=== PATIENT | male | born 1980 | race Caucasian/White ===

== ENCOUNTER 2018-06-15 14:36 | Emergency (ER) | payer OTHER ==
[~2018-06-15] VITALS: Ht 180.3 cm; Wt 81.7 kg
[~2018-06-15 14:36] MED LIST: ALPRAZOLAM OR; CELEXA 20 MG TA20 M1 PO; CELEXA40 MG PO; NAPROSYN500 MG PO; NORCO 5-325 TA1 EACH PO; PENICILLIN V P500 MG PO; XANAX 0.5 MG0.5 MG PO; XANAX1 MG PO
[2018-06-15 14:44] VITALS: BP 145/72
[2018-06-15] MEDS ORDERED: CELEXA40 MG PO (14:58)
[2018-06-15] MEDS ORDERED: ATIVAN1 MG PO (14:58)
== END 2018-06-15 15:11 | disposition home or self-care (01) ==
LOC: M.ERS 14:36
DX: F41.9 Anxiety disorder, unspecified (principal); Z76.0 Encounter for issue of repeat prescription; F32.9 Major depressive disorder, single episode, unspecified; F17.210 Nicotine dependence, cigarettes, uncomplicated; Z88.5 Allergy status to narcotic agent

== ENCOUNTER 2018-08-02 11:51 | Emergency (ER) | payer OTHER ==
[~2018-08-02] VITALS: Ht 180.3 cm; Wt 79.4 kg
[~2018-08-02 11:51] MED LIST changes: +ATIVAN1 MG PO
[2018-08-02] MEDS ORDERED: BUSPAR30 MG PO (11:55)
[2018-08-02] MEDS ORDERED: VISTARIL 25 MG25 M1 PO (11:55)
[2018-08-02 12:08] LABS: ABSOLUTE BASOPHILS 0.1 thou/uL (0.0-0.2); ABSOLUTE EOSINOPHILS 0.2 thou/uL (0.0-0.7); ABSOLUTE LYMPHOCYTES 2.4 thou/uL (0.8-5.3); ABSOLUTE MONOCYTES 0.6 thou/uL (0.0-1.2); ABSOLUTE NEUTROPHILS 4.3 thou/uL (1.6-8.1); BASOPHILS 0.9 %; EOSINOPHILS 2.1 %; HEMATOCRIT 46.3 % (42.0-52.0); HEMOGLOBIN 16.1 gm/dL (14.0-18.0); LYMPHOCYTES 32.3 %; MCH 32.9 pg (26.0-34.0); MCHC 34.8 g/dL (28.0-37.0); MCV 94.6 fL (80.0-100.0); MONOCYTES 7.5 %; MPV 6.9 fl. (7.2-11.1); NUCLEATED RBCS 0 /100WBC; PLATELET COUNT* 260 thou/uL (150-400); POLYS 57.2 %; WBC 7.6 thou/uL (4.0-11.0)
[2018-08-02 12:18] LABS: ANION GAP 9 mmol/L (7-16); BUN 7 mg/dL (7-18); CALCIUM 8.9 mg/dL (8.5-10.1); CHLORIDE 102 mmol/L (98-107); CO2 25 mmol/L (21-32); CREATININE 1.1 mg/dL (0.6-1.3); GLUCOSE 104 mg/dL (70-99); POTASSIUM 3.7 mmol/L (3.5-5.1); SODIUM 136 mmol/L (136-145)
[2018-08-02 12:20] LABS: APTT 26.1 Seconds (25.0-31.3); PROTIME 9.8 Seconds (9.20-11.50)
[2018-08-02 12:37] LABS: ALBUMIN 4.3 g/dL (3.4-5.0); ALKALINE PHOSPHATASE 103 U/L (46-116); CK-MB MASS 0.8 ng/mL (<0.5-3.6); LIPASE 211 U/L (73-393); MAGNESIUM 2.2 mg/dL (1.8-2.4); NT-PRO BRAIN NAT PEPTIDE 34 pg/mL (<300); SGOT 35 U/L (15-37); SGPT 74 U/L (30-65); TOTAL BILIRUBIN 0.4 mg/dL (<0.1-1.0); TOTAL PROTEIN 8.1 g/dL (6.4-8.2); TROPONIN-I LEVEL <0.06 ng/mL (<0.06)
[2018-08-02 13:03] VITALS: BP 105/66
--- NOTE | 2018-08-02 14:55 | EKG ---
[place] [address] ELECTROCARDIOGRAM REPORT Name: VIRGINIA VILLAGOMEZ Room: [facility]#: [id number] Admission: 08/02/18 Attend Phys: Discharge: 08/02/18 Date of : 82 Report #: [id number] THIS REPORT FOR: //name// [facility] ED Test Date: 2018-08-02 Test Time: 11:55:46 Pat Name: VIRGINIA VILLAGOMEZ Department: Room: Gender: M Planning Feeder: REJI : 1980 Requested By: Jean Miranda Order Number: [id number] MD: Kendall Dinh Measurements Intervals [place] Rate: 99 P: 47 OK: 125 QRS: 72 QRSD: 91 T: 21 QT: 357 QTc: 459 Interpretive Statements Sinus rhythm RSR' in V1 or V2, probably normal variant Artifact in lead(s) II,aVF,V1,V2,V3,V4,V5,V6 No previous ECG available for comparison Electronically Signed On 08-02-2018 14:55:20 CDT by Kendall Dinh [email or web address] <ELECTRONICALLY SIGNED> By: Kendall Dinh MD, FACC 08/02/18 1455 1155 1155 Kendall Dinh MD, [facility] /EPI
== END 2018-08-02 13:03 | disposition home or self-care (01) ==
LOC: M.ERS 11:51
PROVIDERS: Family Medicine
DX: R07.9 Chest pain, unspecified (principal); R06.02 Shortness of breath; F41.9 Anxiety disorder, unspecified

== ENCOUNTER 2019-10-28 23:05 | Emergency (ER) | payer OTHER ==
[~2019-10-28] VITALS: Ht 180.3 cm; Wt 72.6 kg
[~2019-10-28 23:05] MED LIST changes: +BUSPAR30 MG PO; +VISTARIL 25 MG25 M1 PO
[2019-10-28 23:36] LABS: ABSOLUTE EOSINOPHILS 0.1 thou/uL (0.0-0.7); ABSOLUTE LYMPHOCYTES 1.9 thou/uL (0.8-5.3); ABSOLUTE MONOCYTES 0.2 thou/uL (0.0-1.2); ABSOLUTE NEUTROPHILS 2.5 thou/uL (1.6-8.1); HEMATOCRIT 42.6 % (42.0-52.0); HEMOGLOBIN 14.9 gm/dL (14.0-18.0); LYMPHOCYTES 40.5 %; MCH 31.6 pg (26.0-34.0); MCHC 34.9 g/dL (28.0-37.0); MCV 90.4 fL (80.0-100.0); MONOCYTES 3.6 %; NUCLEATED RBCS 0 /100WBC; PLATELET COUNT* 222 thou/uL (150-400); POLYS 52.9 %; RBC 4.71 mil/uL (4.50-6.00); RDW-CV 13.2 % (10.5-14.5); WBC 4.7 thou/uL (4.0-11.0)
[2019-10-29 00:01] LABS: CALCIUM 8.1 mg/dL (8.5-10.1); CREATININE 0.9 mg/dL (0.6-1.3)
[2019-10-29 00:12] LABS: ALBUMIN 3.8 g/dL (3.4-5.0); TOTAL BILIRUBIN 0.3 mg/dL (<0.1-1.0); TOTAL PROTEIN 7.5 g/dL (6.4-8.2)
[2019-10-29 01:51] VITALS: BP 115/70
[2019-10-29] MEDS ORDERED: PENICILLIN VK250 MG PO (02:26)
--- NOTE | 2019-10-29 17:10 | EKG ---
[place] [address] ELECTROCARDIOGRAM REPORT Name: HERNANDOVIRGINIA SOLIS Room: [facility]#: [id number] Admission: 10/28/19 Attend Phys: Discharge: 10/29/19 Date of : 82 Report #: [id number] THIS REPORT FOR: //name// [facility] ED Test Date: 2019-10-28 Test Time: 23:10:57 Pat Name: VIRGINIA VILLAGOMEZ Department: Room: Gender: M English Faculty Member: GUSTABO : 1980 Requested By: Maida Raines Order Number: [id number] MD: Hector Capellan Measurements Intervals [place] Rate: 91 P: 33 ME: 146 QRS: 64 QRSD: 94 T: 10 QT: 353 QTc: 435 Interpretive Statements Sinus rhythm Consider left ventricular hypertrophy Compared to ECG 08/02/2018 11:55:46 No significant changes Electronically Signed On 10-29-2019 17:09:31 ELECTRICAL SYSTEM SPECIALIST by Hector Capellan [email or web address] <ELECTRONICALLY SIGNED> By: Hector Capellan MD, [facility] 10/29/19 1709 2310 2310 Hector Capellan MD, FACC /EPI
== END 2019-10-29 01:51 | disposition home or self-care (01) ==
LOC: M.ERS 23:05
PROVIDERS: Emergency Medicine
DX: R07.89 Other chest pain (principal); K02.9 Dental caries, unspecified; F17.210 Nicotine dependence, cigarettes, uncomplicated; Z88.5 Allergy status to narcotic agent

== ENCOUNTER 2020-02-17 08:22 | Emergency (ER) | payer OTHER ==
[~2020-02-17] VITALS: Ht 180.3 cm; Wt 77.1 kg
[~2020-02-17 08:22] MED LIST changes: +PENICILLIN VK250 MG PO
[2020-02-17] MEDS ORDERED: XANAX1 MG PO ×2 (08:44→11:16)
[2020-02-17] MEDS ORDERED: CELEXA 20 MG TA20 MG PO (08:46)
[2020-02-17 08:54] LABS: ABSOLUTE BASOPHILS 0.1 thou/uL (0.0-0.2); ABSOLUTE EOSINOPHILS 0.2 thou/uL (0.0-0.7); ABSOLUTE LYMPHOCYTES 2.6 thou/uL (0.8-5.3); ABSOLUTE MONOCYTES 0.5 thou/uL (0.0-1.2); ABSOLUTE NEUTROPHILS 2.5 thou/uL (1.6-8.1); BASOPHILS 0.9 %; EOSINOPHILS 3.2 %; HEMATOCRIT 45.7 % (42.0-52.0); HEMOGLOBIN 16.4 gm/dL (14.0-18.0); LYMPHOCYTES 44.6 %; MCH 33.6 pg (26.0-34.0); MCHC 35.8 g/dL (28.0-37.0); MCV 93.6 fL (80.0-100.0); MONOCYTES 8.4 %; MPV 6.4 fl. (7.2-11.1); NUCLEATED RBCS 0 /100WBC; PLATELET COUNT* 285 thou/uL (150-400); POLYS 42.9 %; RBC 4.88 mil/uL (4.50-6.00); RDW-CV 15.5 % (10.5-14.5); WBC 5.9 thou/uL (4.0-11.0)
[2020-02-17 09:03] LABS: CALCIUM 8.3 mg/dL (8.5-10.1); POTASSIUM 4.2 mmol/L (3.5-5.1)
[2020-02-17 09:13] LABS: MAGNESIUM 2.2 mg/dL (1.8-2.4); TOTAL BILIRUBIN 0.5 mg/dL (<0.1-1.0)
[2020-02-17] MEDS ORDERED: HYDROXYZINE HCL25 M2 PO (11:25)
[2020-02-17 11:38] VITALS: BP 118/76
--- NOTE | 2020-02-18 10:35 | EKG ---
[place] [address] ELECTROCARDIOGRAM REPORT Name: HERNANDOVIRGINIA TERESITA GORDONALD Room: [facility]#: [id number] Admission: 02/17/20 Attend Phys: Discharge: 02/17/20 Date of : 82 Date of Service: 02/17/20825 Report #: [id number] THIS REPORT FOR: //name// [facility] ED Test Date: 2020-02-17 Test Time: 08:26:45 Pat Name: VIRGINIA VILLAGOMEZ Department: Room: Gender: Curriculum Director: [place] : 1980 Requested By: Cornell Orourke Order Number: [id number] MD: Gerry Maurer Measurements Intervals [place] Rate: 94 P: 39 MT: 141 QRS: 83 QRSD: 90 T: 66 QT: 352 QTc: 441 Interpretive Statements Sinus rhythm Borderline ST depression, lateral leads Compared to ECG 10/28/2019 23:10:57 ST (T wave) deviation now present Electronically Signed On 02-18-2020 10:33:29 CDT by Gerry Maurer [email or web address] <ELECTRONICALLY SIGNED> By: Gerry Maurer MD, [facility] 02/18/20 1033 0826 5 Gerry Maurer MD, [facility] /EPI
== END 2020-02-17 11:47 | disposition home or self-care (01) ==
LOC: M.ERS 08:22
PROVIDERS: Emergency Medicine Emergency Medical Services
DX: F41.9 Anxiety disorder, unspecified (principal); F17.210 Nicotine dependence, cigarettes, uncomplicated; Z88.5 Allergy status to narcotic agent

== ENCOUNTER 2021-07-16 00:50 | Emergency (ER) | payer OTHER ==
[~2021-07-16] VITALS: Ht 180.3 cm; Wt 86.2 kg
[~2021-07-16 00:50] MED LIST changes: +CELEXA 20 MG TA20 MG PO; +HYDROXYZINE HCL25 M2 PO
[2021-07-16 01:26] LABS: HEMATOCRIT 42.7 % (42.0-52.0); HEMOGLOBIN 14.6 gm/dL (14.0-18.0); MCH 33.2 pg (26.0-34.0); MCHC 34.3 g/dL (28.0-37.0); MCV 96.8 fL (80.0-100.0); MPV 6.9 fl. (7.2-11.1); RBC 4.41 mil/uL (4.50-6.00); RDW-CV 15.4 % (10.5-14.5)
[2021-07-16 01:30] LABS: CALCIUM 8.2 mg/dL (8.5-10.1); CREATININE 0.9 mg/dL (0.6-1.3); POTASSIUM 3.7 mmol/L (3.5-5.1)
[2021-07-16 01:35] LABS: ALBUMIN 4.2 g/dL (3.4-5.0); TOTAL BILIRUBIN 0.2 mg/dL (<0.1-1.0); TOTAL PROTEIN 7.8 g/dL (6.4-8.2)
[2021-07-16 01:46] LABS: ALCOHOL 251 mg/dL (<10)
[2021-07-16 01:49] LABS: ACETAMINOPHEN < 2 ug/mL (10-30)
[2021-07-16 05:58] LABS: URINE BILIRUBIN NEGATIVE (Negative); URINE BLOOD NEGATIVE (Negative); URINE CLARITY CLEAR; URINE COLOR YELLOW; URINE GLUCOSE-RANDOM NEGATIVE (Negative); URINE KETONES NEGATIVE (Negative); URINE LEUKOCYTES NEGATIVE (Negative); URINE NITRITE NEGATIVE (Negative); URINE PROTEIN NEGATIVE (Negative); URINE UROBILINOGEN 0.2 E.U./dl (0.2-1.0)
[2021-07-16 06:05] LABS: AMP/METHAMP Negative (Negative); BARBITURATES Negative (Negative); BENZODIAZEPINES POSITIVE (Negative); COCAINE Negative (Negative); METHADONE Negative (Negative); OPIATES Negative (Negative); PCP Negative (Negative); THC Negative (Negative)
[2021-07-16 10:46] VITALS: BP 115/63
== END 2021-07-16 10:47 | disposition home or self-care (01) ==
LOC: M.ERS 00:50
PROVIDERS: Personal Emergency Response Attendant
DX: F10.129 Alcohol abuse with intoxication, unspecified (principal); Z20.822 Contact with and (suspected) exposure to COVID-19; F32.9 Major depressive disorder, single episode, unspecified; F15.94 Other stimulant use, unspecified with stimulant-induced mood disorder; F41.9 Anxiety disorder, unspecified; F17.210 Nicotine dependence, cigarettes, uncomplicated; Z72.89 Other problems related to lifestyle; Z88.5 Allergy status to narcotic agent; Y90.9 Presence of alcohol in blood, level not specified

== ENCOUNTER 2021-08-06 02:23 | Inpatient (IN) | payer OTHER ==
[~2021-08-06] VITALS: Ht 182.9 cm; Wt 89.0 kg
--- NOTE | ~2021-08-06 | CON ---
[address] [address] CONSULTATION Name: VIRGINIA VILLAGOMEZALD Room: [address] IN .R.#: [id number] Admission: 08/06/21 Attend Phys: Jada Franklin Discharge: Date of : 82 Report #: [id number] THIS REPORT FOR: cc: FAM - No family physician/PCP FAM - No family physician/PCP Maverick Almeida MD ~ DATE OF CONSULTATION: 08/08/2021 HISTORY OF PRESENT ILLNESS: This is a 41-year-old male patient who was admitted with alcohol intoxication and on the CT scan, it showed a question of lesion, but MRI demonstrates lesion nicely and it is in the right parietal area with edema. I talked to him if he has any HIV related risk factors, he says no. He has never been drug abuser. He has numerous issues. He sees a psychiatrist and looks like he has anxiety, depression, panic disorder, posttraumatic stress disorder according to him. He smokes as well as drinks alcohol. He also has what looks like a problem with benzodiazepine intake and one of the records says suicidal ideation, but he does not mention anything like that. Patient denies any diabetes, hypertension. Rest of the 14-point review of system was noncontributory. PAST MEDICAL HISTORY: Positive for anxiety and panic disorder. FAMILY HISTORY: Unremarkable. SOCIAL HISTORY: He smokes and drinks alcohol and also uses marijuana. PHYSICAL EXAMINATION: He is alert, responsive, able to follow simple and complex command. His speech looks mostly unremarkable. His cranial nerve examination, I have a difficult time localizing the visual field, but was otherwise noncontributory and even motor system looks mostly nonfocal. Plantars are difficult to tell, but reflexes appeared to be somewhat hyper. Cardiorespiratory examinations appear noncontributory. DIAGNOSTIC DATA: Reviewed the patient's MRI of the brain, there is an impressive finding within the right parietal area. RECOMMENDATIONS: Enhancing mass in the right parietal area, which needs further workup. For that, he needs an evaluation and management by neurosurgery. I talked to Dr. Joy who is the admitting doctor and they told this patient needs to be transferred to the higher level of care where neurosurgery service is available as well as neurology is available. I will send an HIV on him, but he will require further evaluation with neurosurgeon and then they can require in conjunction with detail of what further need to be done. Dr. Joy mentioned that she will initiate the procedure to transfer this [place] [address] CONSULTATION Name: VIRGINIA VILLAGOMEZ Room: [address] IN [facility]#: [id number] Admission: 08/06/21 Attend Phys: Jaad Franklin Discharge: Date of : 82 Report #: [id number] Thank you very much for this referral. Please call us if there is any further neurological help is needed. By: Jada: 08/08/21 1310 1449Maverick Almeida MD /karly
[2021-08-06 02:25] VITALS: BP 109/71
[2021-08-06] MEDS ORDERED: XANAX1 MG PO (02:31)
[2021-08-06 03:03] LABS: ABSOLUTE EOSINOPHILS 0.1 thou/uL (0.0-0.7); ABSOLUTE LYMPHOCYTES 2.4 thou/uL (0.8-5.3); ABSOLUTE MONOCYTES 0.4 thou/uL (0.0-1.2); ABSOLUTE NEUTROPHILS 3.4 thou/uL (1.6-8.1); BASOPHILS 0.7 %; EOSINOPHILS 1.7 %; HEMATOCRIT 46.7 % (42.0-52.0); LYMPHOCYTES 37.7 %; MCH 33.6 pg (26.0-34.0); MCHC 34.3 g/dL (28.0-37.0); MONOCYTES 6.7 %; MPV 7.1 fl. (7.2-11.1); NUCLEATED RBCS 0 /100WBC; PLATELET COUNT* 242 thou/uL (150-400); POLYS 53.2 %; RBC 4.77 mil/uL (4.50-6.00); RDW-CV 14.8 % (10.5-14.5); WBC 6.4 thou/uL (4.0-11.0)
[2021-08-06 03:13] LABS: CALCIUM 8.8 mg/dL (8.5-10.1)
[2021-08-06 14:00] VITALS: BP 113/76
--- NOTE | 2021-08-06 14:23 | EKG ---
[place] [address] ELECTROCARDIOGRAM REPORT Name: BRUCE VILLAGOMEZ Room: [place] [address] ADM IN ..#: [id number] Admission: 08/06/21 Attend Phys: Bruce Gasca Discharge: Date of : 82 Date of Service: 08/06/21 0459 Report #: [id number] THIS REPORT FOR: //name// [facility] ED Test Date: 2021-08-06 Test Time: 04:59:22 Pat Name: BRUCE VILLAGOMEZ Department: Room: [facility] Gender: M Nuclear Auxiliary Operator: LEIDA : 1980 Requested By: Maida Raines Order Number: [id number] MD: Gerry Maurer Measurements Intervals [place] Rate: 99 P: 43 SD: 141 QRS: 79 QRSD: 105 T: 3 QT: 371 QTc: 477 Interpretive Statements Sinus rhythm Borderline T abnormalities, inferior leads Borderline prolonged QT interval Baseline wander in lead(s) V3 Compared to ECG 02/17/2020 08:26:45 T-wave abnormality now present Electronically Signed On 08-06-2021 14:23:12 CDT by Gerry Maurer [email or web address] <ELECTRONICALLY SIGNED> By: Gerry Maurer MD, FACC 08/06/21 1423 0459 0459 Gerry Maurer MD, FACC /EPI
[2021-08-06 15:01] LABS: URINE BILIRUBIN NEGATIVE (Negative); URINE BLOOD NEGATIVE (Negative); URINE CLARITY CLEAR; URINE COLOR YELLOW; URINE GLUCOSE-RANDOM NEGATIVE (Negative); URINE KETONES NEGATIVE (Negative); URINE LEUKOCYTES-REFLEX NEGATIVE (Negative); URINE NITRITE-REFLEX NEGATIVE (Negative); URINE PROTEIN NEGATIVE (Negative); URINE SPECIFIC GRAVITY <= 1.005 (1.005-1.030); URINE UROBILINOGEN 0.2 E.U./dl (0.2-1.0)
[2021-08-06 15:08] LABS: AMP/METHAMP Negative (Negative); BARBITURATES Negative (Negative); BENZODIAZEPINES POSITIVE (Negative); COCAINE Negative (Negative); METHADONE Negative (Negative); OPIATES Negative (Negative); PCP Negative (Negative); THC Negative (Negative)
[2021-08-06 15:57] LABS: HEMATOCRIT 44.6 % (42.0-52.0); HEMOGLOBIN 15.4 gm/dL (14.0-18.0); MCH 33.5 pg (26.0-34.0); MCHC 34.5 g/dL (28.0-37.0); MCV 97.2 fL (80.0-100.0); NUCLEATED RBCS 0 /100WBC; PLATELET COUNT* 254 thou/uL (150-400); RBC 4.59 mil/uL (4.50-6.00); RDW-CV 15.2 % (10.5-14.5); WBC 5.5 thou/uL (4.0-11.0)
[2021-08-06 16:01] LABS: PROTIME 10.3 Seconds (9.20-11.50)
[2021-08-06 16:04] LABS: ALBUMIN 3.7 g/dL (3.4-5.0); CALCIUM 8.5 mg/dL (8.5-10.1); MAGNESIUM 2.1 mg/dL (1.8-2.4); PHOSPHORUS* 2.5 mg/dL (2.5-4.9); POTASSIUM 4.5 mmol/L (3.5-5.1); TOTAL BILIRUBIN 0.4 mg/dL (<0.1-1.0); TOTAL PROTEIN 7.6 g/dL (6.4-8.2)
[2021-08-06 16:28] LABS: ABSOLUTE LYMPHOCYTES 0.4 thou/uL (0.8-5.3); ABSOLUTE MONOCYTES 0.1 thou/uL (0.0-1.2); ABSOLUTE NEUTROPHILS 5.1 thou/uL (1.6-8.1)
[2021-08-06 16:29] LABS: PLATELET ESTIMATE ADEQUATE
[2021-08-06 18:30] VITALS: BP 111/74
[2021-08-06 19:55] VITALS: BP 121/69
[2021-08-06] MEDS ORDERED: XARELTO20 MG PO (20:28)
[2021-08-07 00:23] VITALS: BP 123/62
[2021-08-07 08:15] VITALS: BP 126/77
[2021-08-07 12:00] VITALS: BP 130/70
[2021-08-07 14:37] LABS: HEMOGLOBIN 14.6 gm/dL (14.0-18.0); MCH 33.1 pg (26.0-34.0); MCHC 33.9 g/dL (28.0-37.0); MCV 97.4 fL (80.0-100.0); MPV 7.3 fl. (7.2-11.1); RBC 4.41 mil/uL (4.50-6.00); RDW-CV 14.9 % (10.5-14.5); WBC 13.8 thou/uL (4.0-11.0)
[2021-08-07 14:51] LABS: ALBUMIN 3.5 g/dL (3.4-5.0); CREATININE 1.1 mg/dL (0.6-1.3); TOTAL BILIRUBIN 0.4 mg/dL (<0.1-1.0); TOTAL PROTEIN 7.4 g/dL (6.4-8.2)
[2021-08-07 15:24] VITALS: BP 126/72
[2021-08-07 17:32] VITALS: BP 126/72
[2021-08-07 20:44] VITALS: BP 138/80
[2021-08-08 08:00] VITALS: BP 135/93
[2021-08-08 08:04] LABS: HEMATOCRIT 41.1 % (42.0-52.0); MCH 32.7 pg (26.0-34.0); MCHC 34.1 g/dL (28.0-37.0); MCV 95.9 fL (80.0-100.0); MPV 7.4 fl. (7.2-11.1); RBC 4.29 mil/uL (4.50-6.00); WBC 12.2 thou/uL (4.0-11.0)
[2021-08-08 08:13] LABS: CALCIUM 8.8 mg/dL (8.5-10.1); CREATININE 0.8 mg/dL (0.6-1.3); MAGNESIUM 2.3 mg/dL (1.8-2.4); PHOSPHORUS* 2.9 mg/dL (2.5-4.9); POTASSIUM 3.8 mmol/L (3.5-5.1)
[2021-08-08 16:00] VITALS: BP 136/79
[2021-08-08] MEDS ORDERED: DEXAMETHASONE 44 M1 PO (18:06)
[2021-08-08] MEDS ORDERED: Nicoderm 21MG/24HR P TRANSDERM (18:06)
[2021-08-08] MEDS ORDERED: SYNTHROID100 MC1 PO (18:06)
[2021-08-08] MEDS ORDERED: VITAMIN B-1100 M1 PO (18:06)
[2021-08-08] MEDS ORDERED: NICODERM CQ1 EACH TOP (18:06)
[2021-08-08] MEDS ORDERED: FOLIC ACID1 MG PO (18:06)
== END 2021-08-08 20:45 | disposition short-term general hospital (02) | DRG 71 ==
LOC: M.ERS 02:23 → M.TBA-ER 10:20 → M.2W 18:44
PROVIDERS: Emergency Medicine; Internal Medicine; ADMIT Internal Medicine; ATTEND Internal Medicine
DX: G93.9 Disorder of brain, unspecified (principal); F10.239 Alcohol dependence with withdrawal, unspecified; Z20.822 Contact with and (suspected) exposure to COVID-19; F17.210 Nicotine dependence, cigarettes, uncomplicated; Z88.8 Allergy status to other drugs, medicaments and biological substances; F41.9 Anxiety disorder, unspecified; F32.A Depression, unspecified; F43.10 Post-traumatic stress disorder, unspecified

== ENCOUNTER 2021-09-06 23:44 | Inpatient (IN) | payer OTHER ==
[~2021-09-06] VITALS: Ht 172.7 cm; Wt 88.0 kg
[~2021-09-06 23:44] MED LIST changes: +DEXAMETHASONE 44 M1 PO; +FOLIC ACID1 MG PO; +NICODERM CQ1 EACH TOP; +Nicoderm 21MG/24HR P TRANSDERM; +SYNTHROID100 MC1 PO; +VITAMIN B-1100 M1 PO; +XARELTO20 MG PO
[2021-09-06 23:48] VITALS: BP 105/65
[2021-09-07] VITALS (21 sets, daily range): BP systolic 86–131; BP diastolic 49–92
[2021-09-07 00:13] LABS: URINE BILIRUBIN NEGATIVE (Negative); URINE BLOOD TRACE (Negative); URINE CLARITY CLEAR; URINE COLOR YELLOW; URINE GLUCOSE-RANDOM NEGATIVE (Negative); URINE KETONES NEGATIVE (Negative); URINE LEUKOCYTES NEGATIVE (Negative); URINE NITRITE NEGATIVE (Negative); URINE PROTEIN NEGATIVE (Negative); URINE SPECIFIC GRAVITY <= 1.005 (1.005-1.030); URINE UROBILINOGEN 0.2 E.U./dl (0.2-1.0)
[2021-09-07 00:25] LABS: HEMATOCRIT 40.8 % (42.0-52.0); HEMOGLOBIN 14.2 gm/dL (14.0-18.0); MCH 33.2 pg (26.0-34.0); MCHC 34.7 g/dL (28.0-37.0); MCV 95.6 fL (80.0-100.0); MPV 6.9 fl. (7.2-11.1); RBC 4.27 mil/uL (4.50-6.00); RDW-CV 13.8 % (10.5-14.5); WBC 5.6 thou/uL (4.0-11.0)
[2021-09-07 00:30] LABS: CALCIUM 7.9 mg/dL (8.5-10.1); CREATININE 0.8 mg/dL (0.6-1.3); POTASSIUM 3.4 mmol/L (3.5-5.1)
[2021-09-07 00:34] LABS: AMP/METHAMP Negative (Negative); BARBITURATES Negative (Negative); BENZODIAZEPINES POSITIVE (Negative); COCAINE Negative (Negative); METHADONE Negative (Negative); OPIATES POSITIVE (Negative); PCP Negative (Negative); THC Negative (Negative)
[2021-09-07 00:34] LABS: ALBUMIN 3.5 g/dL (3.4-5.0); TOTAL BILIRUBIN 0.3 mg/dL (<0.1-1.0)
[2021-09-07 01:03] LABS: SALICYLATE 6.9 mg/dL (2.8-20.0)
--- NOTE | 2021-09-07 10:39 | EKG ---
[place] [address] ELECTROCARDIOGRAM REPORT Name: HERNANDOVIRGINIA Room: [address] ADM IN .R.#: [id number] Admission: 09/07/21 Attend Phys: Marbella Mckoy Discharge: Date of : 82 Date of Service: 09/06/21 2342 Report #: [id number] THIS REPORT FOR: //name// [facility] ED Test Date: 2021-09-06 Test Time: 23:42:01 Pat Name: VIRGINIA VILLAGOMEZ Department: Room: [facility] Gender: M Health Equipment Servicer: SIMON : 1980 Requested By: Rose Osman Order Number: [id number] MD: Gerry Maurer Measurements Intervals [place] Rate: 68 P: 12 OR: 153 QRS: 51 QRSD: 101 T: 2 QT: 415 QTc: 442 Interpretive Statements Sinus rhythm Compared to ECG 08/06/2021 04:59:22 rate has slowed Electronically Signed On 09-07-2021 10:38:57 SNACK BAR COOK by Gerry Maurer [email or web address] <ELECTRONICALLY SIGNED> By: Gerry Maruer MD, FACC 09/07/21 1038 2342 2342 Gerry Maurer MD, FACC /EPI
[2021-09-07 10:52] LABS: BE -2.8 mmol/L (-2 to +3); PCO2 44.9 mmHg (35.0-45.0); PO2 108.5 mmHg (75.0-100.0); pH 7.332 (7.340-7.450)
[2021-09-07 15:28] LABS: ABSOLUTE EOSINOPHILS 0.1 thou/uL (0.0-0.7); ABSOLUTE LYMPHOCYTES 1.7 thou/uL (0.8-5.3); ABSOLUTE MONOCYTES 0.4 thou/uL (0.0-1.2); BASOPHILS 0.6 %; EOSINOPHILS 2.2 %; HEMATOCRIT 38.9 % (42.0-52.0); HEMOGLOBIN 13.3 gm/dL (14.0-18.0); LYMPHOCYTES 26.9 %; MCH 32.6 pg (26.0-34.0); MCV 95.8 fL (80.0-100.0); MONOCYTES 6.8 %; MPV 7.3 fl. (7.2-11.1); NUCLEATED RBCS 0 /100WBC; PLATELET COUNT* 199 thou/uL (150-400); POLYS 63.5 %; RBC 4.06 mil/uL (4.50-6.00); RDW-CV 13.8 % (10.5-14.5); WBC 6.3 thou/uL (4.0-11.0)
[2021-09-08] VITALS (25 sets, daily range): BP systolic 102–175; BP diastolic 61–106
[2021-09-08 03:57] LABS: ABSOLUTE LYMPHOCYTES 0.5 thou/uL (0.8-5.3); ABSOLUTE NEUTROPHILS 7.9 thou/uL (1.6-8.1); BASOPHILS 0.2 %; HEMATOCRIT 40.3 % (42.0-52.0); HEMOGLOBIN 13.5 gm/dL (14.0-18.0); MCH 32.3 pg (26.0-34.0); MCHC 33.5 g/dL (28.0-37.0); MCV 96.5 fL (80.0-100.0); MONOCYTES 0.6 %; MPV 7.3 fl. (7.2-11.1); NUCLEATED RBCS 0 /100WBC; PLATELET COUNT* 213 thou/uL (150-400); POLYS 93.2 %; RBC 4.18 mil/uL (4.50-6.00); RDW-CV 13.4 % (10.5-14.5); WBC 8.4 thou/uL (4.0-11.0)
[2021-09-08 04:09] LABS: CALCIUM 7.9 mg/dL (8.5-10.1); CREATININE 0.9 mg/dL (0.6-1.3); MAGNESIUM 2.8 mg/dL (1.8-2.4); POTASSIUM 4.1 mmol/L (3.5-5.1); TOTAL BILIRUBIN 0.3 mg/dL (<0.1-1.0); TOTAL PROTEIN 6.4 g/dL (6.4-8.2)
[2021-09-08 05:05] LABS: PHOSPHORUS* 3.9 mg/dL (2.5-4.9)
[2021-09-08] MEDS ORDERED: KEPPRA XR500 MG PO (19:56)
[2021-09-08] MEDS ORDERED: HYDROCODON-ACE1 EA11 PO (20:01)
[2021-09-09] VITALS (23 sets, daily range): BP systolic 114–138; BP diastolic 66–84
[2021-09-09 06:04] LABS: ABSOLUTE LYMPHOCYTES 1.1 thou/uL (0.8-5.3); ABSOLUTE MONOCYTES 0.5 thou/uL (0.0-1.2); ABSOLUTE NEUTROPHILS 7.1 thou/uL (1.6-8.1); BASOPHILS 0.2 %; HEMATOCRIT 35.5 % (42.0-52.0); HEMOGLOBIN 12.1 gm/dL (14.0-18.0); LYMPHOCYTES 12.7 %; MCH 32.9 pg (26.0-34.0); MCHC 34.3 g/dL (28.0-37.0); MCV 95.9 fL (80.0-100.0); MONOCYTES 5.9 %; MPV 7.1 fl. (7.2-11.1); NUCLEATED RBCS 0 /100WBC; PLATELET COUNT* 170 thou/uL (150-400); POLYS 81.2 %; WBC 8.8 thou/uL (4.0-11.0)
[2021-09-09 06:29] LABS: ALBUMIN 2.9 g/dL (3.4-5.0); CALCIUM 8.2 mg/dL (8.5-10.1); CREATININE 0.9 mg/dL (0.6-1.3); MAGNESIUM 2.5 mg/dL (1.8-2.4); TOTAL BILIRUBIN 0.5 mg/dL (<0.1-1.0)
[2021-09-10] VITALS: BP 131/73
[2021-09-10 04:00] VITALS: BP 140/66
[2021-09-10 08:00] VITALS: BP 136/89
[2021-09-10 12:00] VITALS: BP 159/86
[2021-09-10 16:00] VITALS: BP 142/86
[2021-09-11 08:00] VITALS: BP 149/93
[2021-09-11 15:08] VITALS: BP 145/96
[2021-09-11 16:00] VITALS: BP 141/93
[2021-09-11 21:00] VITALS: BP 164/96
[2021-09-12 07:30] VITALS: BP 142/94
[2021-09-12] MEDS ORDERED: BANOPHEN25 MG PO (09:39)
[2021-09-12] MEDS ORDERED: CYMBALTA30 MG PO (09:39)
[2021-09-12] MEDS ORDERED: TRAZODONE HCL100 MG PO (09:39)
[2021-09-12] MEDS ORDERED: XANAX1 MG PO (09:39)
[2021-09-12] MEDS ORDERED: HYDROCODON-ACE1 EA11 PO (09:39)
[2021-09-12] MEDS ORDERED: ALBUTEROL2.5 MG/31 INH (09:39)
[2021-09-12] MEDS ORDERED: TYLENOL EXTRA500 MG PO (09:39)
[2021-09-12] MEDS ORDERED: TESSALON PERLE100 MG PO (09:39)
[2021-09-12] MEDS ORDERED: AMOX TR-K CLV1 EAC4 PO (09:39)
[2021-09-12] MEDS ORDERED: CEPACOL SORE T1 EAC8 PO (09:39)
[2021-09-12 16:00] VITALS: BP 134/86
[2021-09-13 13:42] LABS: HEMATOCRIT 46.3 % (42.0-52.0); HEMOGLOBIN 15.8 gm/dL (14.0-18.0); MCH 32.7 pg (26.0-34.0); MCHC 34.2 g/dL (28.0-37.0); MCV 95.7 fL (80.0-100.0); MPV 7.2 fl. (7.2-11.1); RBC 4.84 mil/uL (4.50-6.00); RDW-CV 13.7 % (10.5-14.5); WBC 8.4 thou/uL (4.0-11.0)
[2021-09-13 13:45] LABS: CALCIUM 9.1 mg/dL (8.5-10.1); POTASSIUM 3.6 mmol/L (3.5-5.1)
[2021-09-13 13:49] LABS: ALBUMIN 3.4 g/dL (3.4-5.0); TOTAL BILIRUBIN 0.6 mg/dL (<0.1-1.0); TOTAL PROTEIN 7.2 g/dL (6.4-8.2)
[2021-09-13 13:51] LABS: AMP/METHAMP Negative (Negative); BARBITURATES Negative (Negative); BENZODIAZEPINES Negative (Negative); COCAINE Negative (Negative); METHADONE Negative (Negative); OPIATES Negative (Negative); PCP Negative (Negative); THC Negative (Negative)
[2021-09-13 16:46] VITALS: BP 131/88
[2021-09-13 21:30] VITALS: BP 157/98
[2021-09-14 08:00] VITALS: BP 127/85
--- NOTE | 2021-09-14 15:53 | EKG ---
[place] [address] ELECTROCARDIOGRAM REPORT Name: VIRGINIA VILLAGOMEZ Room: [address] ADM IN M.R.#: [id number] Admission: 09/07/21 Attend Phys: Marbella Mckoy Discharge: Date of : 82 Date of Service: 09/10/21 184 Report #: [id number] THIS REPORT FOR: //name// [facility] Test Date: 2021-09-10 Test Time: 18:41:35 Pat Name: VIRGINIA VILLAGOMEZ Department: Room: [facility] Gender: M [place]: 1884 : 1980 Requested By: Sindy Joy Order Number: [id number] Reading MD: Kendall Dinh Measurements Intervals [place] Rate: 57 P: 45 AR: 146 QRS: 56 QRSD: 96 T: 23 QT: 448 QTc: 437 Interpretive Statements Sinus rhythm Left ventricular hypertrophy ST elev, probable normal early repol pattern Baseline wander in lead(s) II,III,aVL,aVF,V1,V3,V4 Compared to ECG 09/06/2021 23:42:01 Left ventricular hypertrophy now present ST (T wave) deviation now present Electronically Signed On 09-14-2021 15:53:19 AUTOMATIC TELLER MACHINE SERVICER by Kendall Dinh [email or web address] <ELECTRONICALLY SIGNED> By: Kendall Dinh MD, [facility] 09/14/21 1553 40 40 Kendall Dinh MD, [facility] /EPI
[2021-09-14 16:00] VITALS: BP 131/77
--- NOTE | 2021-09-14 16:22 | CON ---
[address] [address] CONSULTATION Name: HERNANDOVIRGINIA TERESITA WILL Room: [address] IN M.R.#: [id number] Admission: 09/07/21 Attend Phys: Jada Cuellar Discharge: Date of : 82 Report #: [id number] THIS REPORT FOR: cc: JACOB - No family physician/PCP FAM - No family physician/PCP Moe Retana MD ~ DATE OF CONSULTATION: 09/07/2021 REQUESTING PHYSICIAN: Dr. Joy. HISTORY OF PRESENT ILLNESS: This is a 41-year-old gentleman. He does have some psychiatric history. He is an active smoker. He also does have a history of benzodiazepine use. He recently was admitted to this hospital and was diagnosed with a brain tumor, was transferred to [facility] for further evaluation. I do not have details of his admission from [facility] available. The patient is now admitted with an intentional overdosage, likely of suicidal intent. The patient was intoxicated with alcohol. He also had benzodiazepines as well as opiates in his system upon initial presentation. He therefore required endotracheal intubation for airway protection. There is no known history of aspiration. The patient's blood pressure has been running on the lower side, but he also has been on propofol in addition to Versed. He so far has not required pressors. Chest x-ray performed last night does not show any significant infiltrates or pulmonary vascular congestion. I have just ordered another x-ray now, which is pending. The patient is on the ventilator and therefore is unable to provide a further history or review of systems. PAST MEDICAL HISTORY: Brain tumor; anxiety; posttraumatic stress disorder; depression; collarbone fracture; surgery, right arm. SOCIAL HISTORY: He has a history of heavy alcohol use, also had a history of benzodiazepine use. He did test positive for opiates upon initial presentation; however, I am not aware of any long-term history of opiate use. CURRENT MEDICATIONS: List in You[facility] reviewed. HOME MEDICATIONS: List in YouOS reviewed. At some point, he has been on Xarelto in the past. The reason why he was on Xarelto is not known to me at this time. ALLERGIES: CODEINE. FAMILY HISTORY: There is no pertinent family history known at this time. PHYSICAL EXAMINATION: [place] [address] CONSULTATION Name: VIRGINIA VILLAGOMEZ Room: [address]#: [id number] Admission: 09/07/21 Attend Phys: Jada Cuellar Discharge: Date of : 82 Report #: [id number] GENERAL: He is sedated with Versed and propofol. VITAL SIGNS: Has a heart rate around 65 and a blood pressure of 110/60. He is on 30% FiO2, 5 of PEEP, assist control mode of ventilation, is ventilating and oxygenating adequately. He is afebrile with a temperature of 36.3. HEENT: Head is normocephalic and atraumatic. There is an endotracheal tube in good position. NECK: Does not show raised JVP, asymmetry, mass or lymph nodes. CHEST: Symmetrical expansion on inspection and palpation. On auscultation, breath sounds are bilaterally equal. I do not hear any added sounds. HEART: Regular. There is no murmur. ABDOMEN: Soft and nontender. EXTREMITIES: Lower extremities show no edema and no calf tenderness. SKIN: Dry and intact. NEUROLOGIC: Moves all extremities to painful stimuli. He is on sedation, which limits examination. DIAGNOSTIC DATA: The patient's chest x-ray from yesterday is as discussed above. LABORATORY DATA: The patient's lab work is in YouOS and is reviewed. Low potassium level at 3.4 is noted. He had a mild acidosis and elevation in pCO2 on the arterial blood gas we performed today. We increased the respiratory rate. COVID-19 antigen is negative. ASSESSMENT AND PLAN: 1. Acute hypoxemic respiratory failure secondary to drug overdosage. I would like to get benzodiazepines out of his system before trying to wean him if possible. Therefore, for now, we will continue with propofol. We will go ahead and give him a fentanyl drip and see if we can taper the Versed off. If needed down the line, we can consider Precedex as well. If as a result, he does improve, then I will plan to attempt to proceed with a weaning trial tomorrow morning. 2. Pulmonary infiltrates. There are bilateral basilar pulmonary infiltrates noted on his CT performed in July. I do not have a chest x-ray available from around the same time. These are not clearly visible on the x-ray performed last night. As above, I have ordered a chest x-ray and I will review when available. At some point in the future, the patient would need a followup CT to assess this finding further. While there is no known history of aspiration, I feel that it is reasonable for now to continue with Zosyn as ordered by the primary service to cover for the possibility. I recommend obtaining a sputum culture and nasal swab for MRSA. 3. Hypotension/hypokalemia. Chest x-ray, awaited as above. Some of the hypotension likely is secondary to sedation. We are ventilating and oxygenating adequately and therefore, we will continue with IV fluids for now and see if we [address] [address] CONSULTATION Name: HERNANDOVIRGINIA SOLIS Room: [address] IN M.R.#: [id number] Admission: 09/07/21 Attend Phys: Jada Cuellar Discharge: Date of : 82 Report #: [id number] can avoid pressors. Potassium does need to be replaced. We will replace per protocol. 4. History of brain tumor. See discussion above. 5. History of alcohol and benzodiazepine use. 6. Suicidal attempt. 7. Active smoker. No active bronchospasm. Regardless, I will give him albuterol at this time. He is currently on Solu-Medrol 62.5 mg q.8. From a respiratory point of view, we potentially could cut back the dose. He also does have a brain tumor. Therefore, I did not change the dose at this time. 8. Gastrointestinal prophylaxis, Protonix. The patient is critically ill at this time. Total time spent providing critical care to this patient today exceeds 41 minutes. <ELECTRONICALLY SIGNED> By: Moe Retana MD 09/14/21 1622 1146 1321Alibby Retana MD /nt
[2021-09-14 20:27] VITALS: BP 142/82
[2021-09-15 10:44] VITALS: BP 124/75
[2021-09-15 15:55] VITALS: BP 131/75
[2021-09-15] MEDS ORDERED: TRAZODONE HCL100 MG PO (17:00)
[2021-09-15] MEDS ORDERED: CYMBALTA30 MG PO (17:00)
[2021-09-15 17:04] VITALS: BP 131/75
== END 2021-09-15 18:59 | disposition home or self-care (01) | DRG 917 ==
LOC: M.ERS 23:44 → M.TBA-ER 09-07 02:20 → M.ICU 09-07 04:39 → M.2W 09-09 19:57 → M.3W 09-11 18:12
PROVIDERS: Internal Medicine; Internal Medicine Critical Care Medicine; Personal Emergency Response Attendant; ADMIT Internal Medicine; ATTEND Internal Medicine
PROC: 5A1945Z Respiratory Ventilation, 24-96 Consecutive Hours (ICD-10-PCS; principal; 2021-09-07)
PROC: 0BH17EZ Insertion of Endotracheal Airway into Trachea, Via Natural or Artificial Opening (ICD-10-PCS; principal; 2021-09-07)
PROC: 05HY33Z Insertion of Infusion Device into Upper Vein, Percutaneous Approach (ICD-10-PCS; principal; 2021-09-07)
PROC: B54MZZA Ultrasonography of Right Upper Extremity Veins, Guidance (ICD-10-PCS; 2021-09-07)
DX: T42.4X2A Poisoning by benzodiazepines, intentional self-harm, initial encounter (principal); J96.01 Acute respiratory failure with hypoxia; J15.6 Pneumonia due to other Gram-negative bacteria; F41.9 Anxiety disorder, unspecified; F43.10 Post-traumatic stress disorder, unspecified; G93.9 Disorder of brain, unspecified; T40.602A Poisoning by unspecified narcotics, intentional self-harm, initial encounter; Z20.822 Contact with and (suspected) exposure to COVID-19; F32.9 Major depressive disorder, single episode, unspecified; F10.929 Alcohol use, unspecified with intoxication, unspecified; E87.6 Hypokalemia; I95.9 Hypotension, unspecified; T14.91XA Suicide attempt, initial encounter; Z88.6 Allergy status to analgesic agent; X83.8XXA Intentional self-harm by other specified means, initial encounter; Y93.89 Activity, other specified; Y92.89 Other specified places as the place of occurrence of the external cause; Y99.8 Other external cause status